=== PATIENT | male | born 1930 | race Two or more races ===

== ENCOUNTER 2017-11-06 09:47 | Emergency (ER) | payer MEDICARE ==
[~2017-11-06] VITALS: Ht 180.3 cm; Wt 88.5 kg
--- NOTE | 2017-11-06 09:50 | NUR ---
[id number] FROM [facility] FOR SLURRED SPEECH, LEFT SIDED WEAKNESS. NAD NOTED. AT BEDSIDE. RR EVEN AND UNLABORED. VSS. DR ROSAS AT BEDSIDE. CODE STROKE INITIATED.
--- NOTE | 2017-11-06 09:50 | NUR ---
ACTIVATED CODE STROKE.
--- NOTE | 2017-11-06 09:53 | NUR ---
PATIENT TRANSPORTED TO CT VIA GURNEY.
--- NOTE | 2017-11-06 09:55 | NUR ---
CALLED TELE-STROKE AND SPOKE WITH
[2017-11-06] MEDS ORDERED: IV NS 0.9% 500 ML IV ONE (09:56)
[2017-11-06] MEDS ORDERED: IOHEXOL-350 100 ML VIAL IV ONE (09:56)
[2017-11-06] MEDS ORDERED: CT SWABBABLE VALVE TRANS SET 1 EA INFUS.SET MC ONE (09:56)
[2017-11-06 09:57] LABS: BASOPHILS # (AUTO) 0.2 /CMM (0.0-0.2); BASOPHILS % (AUTO) 2.4 % (0.0-2.0); EOSINOPHILS % (AUTO) 2.7 % (0.0-6.0); HEMATOCRIT 40 % (39-51); HEMOGLOBIN 14.2 g/dL (13.5-17.5); LYMPHOCYTES # (AUTO) 3.8 /CMM (0.8-4.8); LYMPHOCYTES % (AUTO) 40.6 % (20.0-44.0); MEAN CORPUSCULAR HGB CONC 36 g/dl (31.0-36.0); MEAN CORPUSCULAR VOLUME 93 fL (80-96); MONOCYTES # (AUTO) 0.7 /CMM (0.1-1.30); MONOCYTES % (AUTO) 7.4 % (2.0-12.0); NEUTROPHILS # (AUTO) 4.3 /CMM (1.8-8.9); NEUTROPHILS % (AUTO) 46.9 % (43.0-81.0); PLATELET COUNT (AUTO) 191 /CMM (150-450); RDW COEFFICIENT OF VARIATION 12.8 (11.5-15.0); RED BLOOD CELL COUNT(AUTO) 4.25 MIL/uL (4.5-6.0); WHITE BLOOD COUNT (AUTO) 9.3 K/uL (4.3-11.0)
--- NOTE | 2017-11-06 09:59 | NUR ---
DR MUÑOZ (NEUROLOGIST) IS TALKING TO DR ROSAS.
[2017-11-06 10:03] LABS: CALCIUM, SERUM 8.8 mg/dL (8.5-10.1); CARBON DIOXIDE 28 mmol/L (21-32); CHLORIDE 106 mmol/L (98-107); CREATININE 1.5 mg/dL (0.6-1.3); GLUCOSE 103 mg/dL (74-106); POTASSIUM 3.8 mmol/L (3.5-5.1); SODIUM SERUM 139 mmol/L (136-145); UREA NITROGEN, BLOOD 18 mg/dL (7-18)
--- NOTE | 2017-11-06 10:04 | NUR ---
PT BACK FROM CT.
[2017-11-06 10:07] LABS: INR 0.94 (0.85-1.15)
[2017-11-06 10:09] LABS: ALANINE AMINOTRANSFERASE 20 U/L (12-78); ALBUMIN 3.8 g/dL (3.4-5.0); ALKALINE PHOSPHATASE 69 U/L (46-116); ASPARTATE AMINOTRANSFERASE 22 U/L (15-37); BILIRUBIN,DIRECT 0.2 mg/dL (0.0-0.2); BILIRUBIN,TOTAL 0.8 mg/dL (0.2-1.0); TOTAL PROTEIN, SERUM 7.3 g/dL (6.4-8.2)
[2017-11-06 10:10] LABS: CHOLESTEROL 180 mg/dL (<200); HDL CHOLESTEROL 65 mg/dL (40-60); LDL 109 mg/dL (0-99); TRIGLYCERIDES 89 mg/dL (30-150)
[2017-11-06 10:13] LABS: TROPONIN I < 0.017 ng/mL (0.00-0.056)
[2017-11-06] MEDS ORDERED: ASPIRIN 300 MG/SUPP.RECT RC ONE ×2 (10:18→10:30)
--- NOTE | 2017-11-06 10:38 | NUR ---
CALLED DR MUÑOZ (TELE-NEUROLOGIST).
--- NOTE | 2017-11-06 10:57 | NUR ---
FAXED FACESHEET AND SUMM REPORT TO LISA RIVERA. [phone]
--- NOTE | 2017-11-06 11:27 | NUR ---
SPOKE TO LISA RIVERA.- ETA 20 MIN FOR TRANSPORT.
[2017-11-06 11:51] VITALS: BP 126/88
--- NOTE | 2017-11-06 11:54 | NUR ---
[facility] CCT ARRIVED AT THIS TIME. CREW SPEAKING WITH PATIENT AND FAMILY
--- NOTE | 2017-11-06 12:07 | NUR ---
PT LEAVING VIA AMBULANCE IN STABLE CONDITION. REPORT GIVEN TO LISA FISHER RN. VSS. ALL FORMS GIVEN AND SIGNED. NO FURTHER COMPLAINTS.
== END 2017-11-06 12:16 | disposition short-term general hospital (02) ==
LOC: ER 09:49
DX: I63.9 Cerebral infarction, unspecified (principal); F02.80 Dementia in other diseases classified elsewhere, unspecified severity, without behavioral disturbance, psychotic disturbance, mood disturbance, and anxiety; G30.9 Alzheimer's disease, unspecified; E78.5 Hyperlipidemia, unspecified; Z79.82 Long term (current) use of aspirin
CPT/HCPCS: 36415; 70450-TC; 70496-TC; 70498-TC; 71045-TC; 80048-TC; 80061-TC; 80076-TC; 84484-TC; 85025-TC; 85730-TC; A4606; J7040; Q9967; Z7610